=== PATIENT | female | born 1930 | race Caucasian/White ===

== ENCOUNTER 2016-09-03 09:55 | Outpatient (CLI) | payer MEDICARE ==
--- NOTE | 2016-09-06 17:38 | Vascular Lab Report ---
Right Lower Extremity Venous Duplex Study: Reason for Exam: Right leg swelling. Comments on the Right: All veins visualized are freely compressible without evidence of internal echogenicity. Flow is spontaneous and phasic throughout. No evidence of acute or chronic thrombus is seen in any of the vessels visualized. Soft tissue changes noted in the right leg are consistent with ruptured Gonzales's cyst. Comments on the Left: A limited duplex study was done of the proximal veins of the left lower extremity. All veins visualized are freely compressible without evidence of internal echogenicity. Flow is spontaneous and phasic throughout. No evidence of acute or chronic thrombus is seen in any of the vessels visualized. Impression: No evidence of acute or chronic deep venous thrombosis in the right lower extremity.
== END 2016-09-03 09:56 | disposition home or self-care (01) ==
LOC: VAS 09:55
PROVIDERS: ATTEND Internal Medicine
DX: M79.89 Other specified soft tissue disorders (principal)

== ENCOUNTER 2018-01-17 10:20 | Emergency (ER) | payer MEDICARE ==
[2018-01-17] MEDS ORDERED: MOTRIN PO ONE (12:15)
--- NOTE | 2018-01-17 12:52 | XRay Report ---
LEFT ELBOW, 3 views: History: Fall, injury. The bony architecture is intact without evidence of fracture or dislocation. No significant soft tissue abnormality is seen. IMPRESSION: Left elbow within normal limits.
--- NOTE | 2018-01-17 12:53 | XRay Report ---
LUMBOSACRAL SPINE, 3 VIEWS: History: Fall, injury Findings: Mild osteopenia. There is moderate multilevel degenerative disc disease and facet arthropathy. No compression deformity, subluxation or bone lesion is identified. The sacrum is poorly visualized but grossly intact. Impression: Osteopenia. Degenerative changes. No evidence for acute injury to the lumbar spine.
--- NOTE | 2018-01-17 13:08 | Emergency Department Report ---
ED Fall HPI - General Chief Complaint: Fall Stated Complaint: FALL BACK PAIN Time Seen by Provider: 01/17/18 12:00 Source: family Mode of arrival: Ambulatory - History of Present Illness Initial Comments: Patient is a 87-year-old female who is presenting status post fall. Earlier today the patient tripped and fell while using her walker. Patient is complaining of some low back pain feels stiff and aching is worse with movement as well as left elbow pain. The patient is full range of motion to the left elbow and states is just sore. Patient rates her back pain at a 8 out of 10 in severity. Patient did not hit her head there was no loss of consciousness. Patient has no other injuries. - Related Data Home Medications Medication Instructions Recorded Confirmed Last Taken Carvedilol [Coreg] 3.125 mg PO BID 03/01/14 09/11/17 02/28/14 Omeprazole [PriLOSEC] 20 mg PO QDAY 03/01/14 03/01/14 02/28/14 Warfarin [Coumadin] 2.5 mg PO QDAY 03/01/14 09/11/17 02/28/14 AtorvaSTATin [Lipitor] 10 mg PO QHS 09/11/17 09/11/17 Unknown Cholecalciferol (Vitamin D3) 1,000 unit PO DAILY 09/11/17 09/11/17 Unknown [Vitamin D3] HYDROcodone/ACETAMINOPHEN 1 each PO QID 09/11/17 09/11/17 Unknown [Hydrocodon-Acetaminophen 5-325] ISOSORBIDE MONOnitrate [Imdur ER] 60 mg PO QDAY 09/11/17 09/11/17 Unknown Nitroglycerin [Nitrostat] 0.4 mg SL Q5M PRN 09/11/17 09/11/17 Unknown Timolol 0.5% [Timoptic] 09/11/17 Unknown Previous Rx's Medication Instructions Recorded Last Taken Type Ibuprofen [Motrin] 400 mg PO Q8H PRN #20 tablet 01/17/18 Unknown Rx methOCARBAMOL [Robaxin TAB] 500 mg PO Q6H PRN #15 tablet 01/17/18 Unknown Rx Allergies Allergy/AdvReac Type Severity Reaction Status Date / Time morphine Allergy Swelling Verified 01/17/18 10:41 Sulfa (Sulfonamide Allergy Unknown Verified 01/17/18 10:41 Antibiotics) ED Review of Systems ROS: Stated complaint: FALL BACK PAIN Other details as noted in HPI Comment: All other systems reviewed and negative ED Past Medical Hx - Past Medical History Hx Hypertension: Yes Hx Deep Vein Thrombosis: Yes Hx Pulmonary Embolism: Yes Additional medical history: glaucoma, protein C or S deficiency (pt cant recall which) - Surgical History Additional Surgical History: lens implant, colostomy, abdominal hernia/ incarcerated bowel - Social History Smoking Status: Never Smoker Substance Use Type: None - Medications Home Medications: Home Medications Medication Instructions Recorded Confirmed Last Taken Type Carvedilol [Coreg] 3.125 mg PO BID 03/01/14 09/11/17 02/28/14 History Omeprazole [PriLOSEC] 20 mg PO QDAY 03/01/14 03/01/14 02/28/14 History Warfarin [Coumadin] 2.5 mg PO QDAY 03/01/14 09/11/17 02/28/14 History AtorvaSTATin [Lipitor] 10 mg PO QHS 09/11/17 09/11/17 Unknown History Cholecalciferol (Vitamin D3) 1,000 unit PO DAILY 09/11/17 09/11/17 Unknown History [Vitamin D3] HYDROcodone/ACETAMINOPHEN 1 each PO QID 09/11/17 09/11/17 Unknown History [Hydrocodon-Acetaminophen 5-325] ISOSORBIDE MONOnitrate [Imdur ER] 60 mg PO QDAY 09/11/17 09/11/17 Unknown History Nitroglycerin [Nitrostat] 0.4 mg SL Q5M PRN 09/11/17 09/11/17 Unknown History Timolol 0.5% [Timoptic] 09/11/17 Unknown History Ibuprofen [Motrin] 400 mg PO Q8H PRN #20 tablet 01/17/18 Unknown Rx methOCARBAMOL [Robaxin TAB] 500 mg PO Q6H PRN #15 tablet 01/17/18 Unknown Rx ED Physical Exam - General Limitations: Language Barrier, Physical Limitation General appearance: alert, in no apparent distress - Head Head exam: Present: atraumatic, normocephalic - Eye Eye exam: Present: normal appearance - ENT ENT exam: Present: mucous membranes moist - Neck Neck exam: Present: normal inspection - Respiratory Respiratory exam: Present: normal lung sounds bilaterally. Absent: respiratory distress, wheezes, rales, rhonchi - Cardiovascular Cardiovascular Exam: Present: regular rate, normal rhythm. Absent: systolic murmur, diastolic murmur, rubs, gallop - GI/Abdominal GI/Abdominal exam: Present: soft, normal bowel sounds. Absent: distended, tenderness, guarding, rebound - Extremities Exam Extremities exam: Present: normal inspection, joint swelling (small bruise near the left elbow) - Back Exam Back exam: Present: normal inspection, paraspinal tenderness (lumbar spine) - Neurological Exam Neurological exam: Present: alert, oriented X3 - Psychiatric Psychiatric exam: Present: normal affect, normal mood - Skin Skin exam: Present: warm, dry, intact, normal color. Absent: rash ED Course Vital Signs 01/17/18 10:42 Temperature 98.5 F Pulse Rate 74 Respiratory 18 Rate Blood Pressure 128/53 O2 Sat by Pulse 97 Oximetry ED Medical Decision Making - Radiology Data X-ray of the L-spine shows no acute fracture is some old degenerative changes X-ray of the left elbow shows no acute process - Medical Decision Making Patient is a 87-year-old female who is coming in status post fall. Luckily the patient x-rays show no acute fractures. Patient was discharged home with meds for symptomatic relief. Critical care attestation.: If time is entered above; I have spent that time in minutes in the direct care of this critically ill patient, excluding procedure time. ED Disposition Clinical Impression: Lumbar strain Qualifiers: Encounter type: initial encounter Qualified Code(s): S39.012A - Strain of muscle, fascia and tendon of lower back, initial encounter Elbow contusion Qualifiers: Encounter type: initial encounter Laterality: left Qualified Code(s): S50.02XA - Contusion of left elbow, initial encounter Disposition: - TO HOME OR SELFCARE Is pt being admited?: No Does the pt Need Aspirin: No Condition: Stable Instructions: Muscle Strain (ED) Referrals: REN VORA MD [Primary Care Provider] - 3-5 Days
[2018-01-17 13:30] VITALS: BP 152/90
== END 2018-01-17 13:28 | disposition home or self-care (01) ==
LOC: ED 10:20
DX: S39.012A Strain of muscle, fascia and tendon of lower back, initial encounter (principal); S50.02XA Contusion of left elbow, initial encounter; I10 Essential (primary) hypertension; Z86.718 Personal history of other venous thrombosis and embolism; Z88.6 Allergy status to analgesic agent; Z88.2 Allergy status to sulfonamides; Z79.01 Long term (current) use of anticoagulants; W01.0XXA Fall on same level from slipping, tripping and stumbling without subsequent striking against object, initial encounter; Y93.89 Activity, other specified; Y92.89 Other specified places as the place of occurrence of the external cause; Y99.8 Other external cause status
CPT/HCPCS: 72100; 99283